=== PATIENT | female | born 1975 | race Caucasian/White ===

== ENCOUNTER 2018-07-01 00:19 | Outpatient (CLI) | payer OTHER, SELFPAY ==
--- NOTE | 2018-07-01 08:00 | DI.MAMMO_ITS ---
SYMPTOM/DIAGNOSIS: SCREENING, Z12.31 MAMMOGRAMS: Mammograms were interpreted according to the usual protocol including computer analysis with CAD system, tomosynthesis and C view imaging. Comparison with prior examinations. Breast density D. No masses or microcalcifications are seen. There is nothing to suggest malignancy. IMPRESSION: Negative mammogram. Routine screening is recommended. Category I. MQSA ASSESSMENT OF FINDINGS: Negative. Category 1. Patient will receive a letter notifying them of these results. BI-RADS category D. The breasts are extremely dense, which lowers the sensitivity of mammography.
== END 2018-07-01 00:39 ==
PROVIDERS: PCP Family Medicine; Visit Provider Nurse Practitioner Family
DX: Z12.31 Encounter for screening mammogram for malignant neoplasm of breast (principal)
CPT/HCPCS: 77063; 77067

== ENCOUNTER 2020-01-13 11:11 | Outpatient (REF) | payer OTHER, SELFPAY ==
[2020-01-13 18:28] LABS: HCT 40.6 % (36.0-46.0); HGB 13.7 g/dL (12.0-15.5); Mean Corp. HGB Concentration 33.7 g/dL (32.0-36.0); Mean Corpuscular Hemoglobin 30.2 pg (27.0-33.0); Mean Corpuscular Volume 89.6 fL (80-95); Mean Platelet Volume 10.3 fL (8.0-11.0); Platelet Count 251 x1000/uL (130-400); RBC 4.53 m/cumm (4.00-5.20); RBC Distribution Width 13.2 % (11.7-14.6); White Blood Cell Count 4.78 k/cumm (4.4-10.8)
[2020-01-13 18:42] LABS: ALT 18 U/L (14-59); AST 13 U/L (15-37); Alkaline Phosphatase 47 U/L (46-116); Anion Gap 9.4 mmol/L (3-11); BUN 13 mg/dL (7-18); Bilirubin, Total 1.1 mg/dL (0.2-1.0); C-Reactive Protein 0.07 mg/dL (0.0-0.3); CO2 24.6 mmol/L (21.0-32.0); CREATININE 0.65 mg/dL (0.55-1.02); Calcium 8.8 mg/dL (8.5-10.1); Chloride 104 mmol/L (98-107); Creatine Kinase 25 U/L (26-192); Glucose 81 mg/dL (74-106); Potassium 3.8 mmol/L (3.5-5.1); Sodium 138 mmol/L (136-145); TSH (W/Ref FT4) 1.43 uIU/mL (0.36-3.74)
[2020-01-13 19:10] LABS: ESR 7 mm/hr (0-20)
[2020-01-16 11:09] LABS: Lyme Ab w Rflx to Lyme Confirm Negative (Negative)
== END 2020-01-13 11:31 ==
LOC: NCHCN 11:11
PROVIDERS: PCP Family Medicine; Visit Provider Nurse Practitioner Family
DX: M79.10 Myalgia, unspecified site (principal)
CPT/HCPCS: 80053; 82550; 85027; 85652; 84443; 86140; 86618

== ENCOUNTER 2021-03-16 15:33 | Emergency (ER) | payer SELFPAY ==
[2021-03-16 15:40] VITALS: BP 133/69; PULSE 74; RESP 20; TEMP 36.7; O2SAT 98
--- NOTE | 2021-03-16 15:45 | DI.CT_ITS ---
Exam(s) CT RENAL COLIC WO EXAM: CT RENAL COLIC WO CLINICAL HISTORY: L flank pain. TECHNIQUE: Imaging Protocol: Axial computed tomography images with coronal and sagittal reformatted images were created and reviewed. COMPARISON: No exams were available for comparison FINDINGS: ABDOMEN: Lung Bases: Normal where visualized. There does appear to be a partially visualized small pericardial effusion. Liver: Normal density. No measurable mass. Gallbladder and biliary tract: No radiodense calculus or biliary ductal dilation. Pancreas: Normal density, no abnormal calcifications or inflammatory process. Spleen: Normal. Kidneys: Normal size, contour and axis.There is left nephrolithiasis. There is a 3 mm stone in the d istal left ureter just proximal to the UVJ which causes mild to moderate hydronephrosis. No masses s een. Adrenal glands: No mass is seen. Lymph nodes: Within normal limits. Abdominal Aorta: Abdominal portion non-dilated. PELVIS: Bladder:Symmetric distention, no gross wall thickening. Bowel: No obstruction or bowel wall thickening. Normal appendix is visualized. Peritoneal cavity: No ascites, collection or mesenteric inflammatory response. No free air. Reproductive organs: Within normal limits. Bones: Within normal limits. Soft Tissues: Within normal limits. IMPRESSION: 1. 3 mm stone in the distal left ureter just proximal to the UVJ which causes mild to moderate hydron ephrosis. 2. Left nephrolithiasis. 3. Small partially visualized pericardial effusion. RADIATION DOSE DELIVERED: 704.8mGy.cm Total DLP DATA REPOSITORY: All CT scans at this facility are submitted to the National Radiology Data Registry (NRDR) Dose Index Registry (DIR) with the [employer] (ACR). RADIATION OPTIMIZATION: All CT scans at this facility use at least one of these dose optimization te chniques: automated exposure control; mA and/or kV adjustment per patient size (includes targeted exa ms where dose is matched to clinical indication); or iterative reconstruction.
--- NOTE | 2021-03-16 15:47 | ED.GENADUL_ITS ---
Discharge Plan Disposition Patient Disposition: HOME Condition: Improving Discharge Details Clinical Impression: Ureteral calculus, left Primary Care Provider: Antonella Reynolds ED Provider: Leighton Salinas Home Meds and New Rx's Prescriptions: No Action No Known Home Meds RF: 0 Discharge Instructions Instructions: Kidney Stones (ED), How to Strain Your Urine (ED) Additional Instructions: Home to rest this evening. May use ibuprofen as needed for pain, with the provided hydrocodone if needed for severe or breakthrough pain. May use Zofran/ondansetron as needed for nausea. Please strain your urine in an attempt to catch any kidney stone you may produce. This can be brought to the urology clinic at the time of your follow- up. We will have care management arrange a follow-up in urology for you. Return to the ER if you develop a fever, recurrent severe pain, or any other acute concerns. As you discussed your potassium level was slightly low, it was supplemented in the ER, which you may increase potassium-containing foods such as bananas, strawberries, tree nuts, leafy greens in your diet. Medical Decision Making 45-year-old female presents with her . She describes the abrupt onset of left-sided flank pain and abdomen pain beginning approximately 25 minutes prior. She arrives to the ER afebrile, normotensive with a pulse of 74. She has mild tenderness palpation of the left mid abdomen. Differential diagnosis includes renal colic, pyelonephritis, small bowel obstruction. Patient IV access established, screening labs obtained, she is given parenteral fluids, antiemetic, and analgesic. Referred for laboratory testing and CT imaging. Laboratories reveal hematuria, chemistries that note potassium of 3.1, unremarkable CBC. Potassium supplemented in the emergency department. CT reveals mild to moderate left hydroureteronephrosis and a 3 to 4 mm distal ureteral stone. Patient's pain improved. Will have her follow-up with urology. Will offer her antiemetic and analgesia for home. HPI General Mode of arrival: ambulatory . Date/Time Provider Initiated Documentation: 03/16/21 15:34 . Limitations to Documentation: no limitations . Information obtained by: patient . History of Present Illness 45 year old F presents to the emergency department with the chief complaint of Abrupt onset severe left flank and abdomen pain, described as severe, Quality is described as dull and constant, and is localized to the abdomen and left. Patient reports radiation to back. Patient started experiencing this minute(s) and it has been constant. No relieving factors improve symptom(s), No exacerbating factors reported . Patient notes nausea/vomiting; denies fever/chills. Patient did receive the following treatments prior to arrival, none Related Data Home Medications Medication Instructions Recorded Confirmed Unknown [No Known Home Meds] 06/17/18 03/16/21 Allergies Allergy/AdvReac Type Severity Reaction Status Date / Time No Known Allergies Allergy Verified 03/16/21 15:44 General Stated Complaint: FlankPain ELIZABETH: 2 Review of Systems Narrative: No fever. No fall or injury. Otherwise healthy lady. 6 systems reviewed and otherwise negative. [facility] Medical History Family history of breast cancer Family History Mother Breast cancer Grandmother Breast cancer paternal Maternal Uncle Colon cancer maternal Social History Smoking/Tobacco Use Status: Never Smoking risk assessment performed?: Yes Drug use: Never Female Reproductive History Menstrual control method: permanent sterilization (Vasectomy for BC) History History 5 Para 4 Hx # Term Pregnancies Multiple births Hx # Pregnancies Ectopic pregnancies AB induced Hx Number of Living Children AB spontaneous Past Pregnancies Del. Date GA/Weeks # Outcome Route Wgt Sex Labor Lgth Anesthes ia Location Prov Complic Unknown Delivery Date: 4 vaginal deliveries NGHIA,LIZZ Exam Narrative Exam Narrative: GEN: awake, alert, oriented 3. In pain and distress HEAD: Normocephalic, atraumatic ENT: Mucous membranes moist, oropharynx unremarkable, External ear exam unremarkable EYES: PERRL, EOMI NECK: Full ROM, no ELEANOR, no menigismus CHEST/RESP: Nontender, clear to auscultation bilateral, no wheeze/rhonchi/rales CARDIOVASCULAR: RRR, no murmur, rub ellen. 2+ Rad pulse bilateral ABDOMEN: Soft, tender to palpation left mid abdomen, no rebound, no mass. +Bowel sounds EXT: Full ROM, no edema, no rash Neuro: Grossly normal neurologic exam, conversant, interactive. Psych: Speech fluent, thoughts congruent, affect anxious Course Vital Signs Vital signs: Vital Signs Temperature 36.7 C 07/24/21 15:40 Pulse 74 03/16/21 15:40 Respiratory Rate 20 03/16/21 15:40 Blood Pressure 133/69 03/16/21 15:40 Pulse Oximetry 98 03/16/21 15:40 Temperature 36.7 C 03/16/21 15:40 Temperature Source Temporal Artery Scan 03/16/21 15:40 Pulse 74 03/16/21 15:40 Respiratory Rate 20 03/16/21 15:40 Respiratory Effort Non-Labored 03/16/21 15:43 Blood Pressure 133/69 03/16/21 15:40 Blood Pressure Position Supine 03/16/21 15:40 Pulse Oximetry 98 03/16/21 15:40 Oxygen Delivery Method Room Air 03/16/21 15:40 Oxygen Flow Rate 0 03/16/21 15:40 Pain Level 10 03/16/21 15:40
[2021-03-16] MEDS: HYDROmorphone 2 MG/ML VIAL 1 MG IVP (15:52)
[2021-03-16] MEDS: Normal Saline 1,000 ML 1000 ML IV (15:52)
[2021-03-16] MEDS: Ondansetron 4 MG/2 ML VIAL IVP (15:53)
[2021-03-16 16:05] LABS: Abs Immature Grans 0.02 10^3/uL (0.0-0.06); Absolute Basophil Count 0.04 10^3/uL (0.0-0.2); Absolute Eosinophil Count 0.08 10^3/uL (0.0-0.7); Absolute Lymphocyte Count 3.98 10^3/uL (1.2-3.4); Absolute Monocyte Count 0.75 10^3/uL (0.1-0.8); Absolute Neutrophil Count 4.99 10^3/uL (1.2-6.7); Basophils % 0.4; Eosinophils % 0.8; HCT 39.9 % (36.0-46.0); HGB 13.5 g/dL (11.2-15.7); Immature Grans % 0.2; Lymphocytes % 40.4; MCH 30.1 pg (27.0-33.0); MCHC 33.8 % (32.0-36.0); MCV 89.1 fL (80-95); MPV 9.4 fL (8.0-11.0); Monocytes % 7.6; Neutrophils % 50.6; Nucleated RBC 0 %; Platelet Count 310 10^3/uL (130-400); RBC 4.48 10^6/uL (3.93-5.22); RDW 12.3 % (11.7-14.6); RDW-SD 40.2 fL; WBC 9.86 10^3/uL (4.4-10.8)
[2021-03-16] MEDS: HYDROmorphone 2 MG/ML VIAL 0.5 MG IVP (16:18)
[2021-03-16 16:19] VITALS: BP 112/73; O2SAT 92
[2021-03-16 16:26] LABS: ALT 19 U/L (14-59); AST 14 U/L (15-37); Alkaline Phosphatase 50 U/L (46-116); BUN 14 mg/dL (7-18); Bilirubin, Total 0.8 mg/dL (0.2-1.0); CREATININE 0.8 mg/dL (0.55-1.02); Calcium 9.4 mg/dL (8.5-10.1); Chloride 107 mmol/L (98-107); Glucose 100 mg/dL (74-106); Potassium 3.1 mmol/L (3.5-5.1); Sodium 145 mmol/L (136-145); Total Protein 7.2 g/dL (6.4-8.2)
[2021-03-16 16:48] LABS: Bilirubin Negative (Negative); Blood Large (Negative); Clarity Clear (Clear); Glucose Negative (Negative); Ketones 40 mg/dL (Negative); Leukocyte Esterase Negative (Negative); Nitrite Negative (Negative); Specific Gravity >= 1.030 (1.005-1.025); Urobilinogen 0.2 EU/dL (Up TO 0.2); pH 6.5 (5-8)
[2021-03-16 17:02] LABS: Bacteria Moderate HPF (Negative); C & S Indicated? No/Sq. Contamination; Casts Negative LPF (Negative); Crystals Negative HPF (Negative); Epithelial Cells Moderate HPF (Negative); Mucus Negative (Negative); RBC >50 HPF (0-2)
[2021-03-16] MEDS: POTASSIUM CHLORIDE 10 MEQ/100 ML BAG 100 MEQ IVPB (17:10)
--- NOTE | 2021-03-16 17:11 | DI.VRAD_ITS ---
PROCEDURE INFORMATION: Exam: CT Abdomen And Pelvis Without Contrast Exam date and time: 03/16/2021 3:47 PM Age: 45 years old Clinical indication: Other: Left flank pain TECHNIQUE: Imaging protocol: Computed tomography of the abdomen and pelvis without contrast. COMPARISON: No relevant prior studies available. FINDINGS: Lungs: The visualized portions of the lung bases are normal. Heart: Partially visualized small pericardial effusion. Liver: Normal. No mass. Gallbladder and bile ducts: Normal. No calcified stones. No ductal dilation. Pancreas: Normal. No ductal dilation. Spleen: Normal. No splenomegaly. Adrenal glands: Normal. No mass. Kidneys and ureters: Mild to moderate left hydroureteronephrosis secondary to a 3-4 mm stone within the distal ureter, just proximal to the UVJ. Stomach and bowel: Unremarkable. No obstruction. No mucosal thickening. Appendix: No evidence of appendicitis. Intraperitoneal space: Unremarkable. No free air. No significant fluid collection. Vasculature: Unremarkable. No abdominal aortic aneurysm. Lymph nodes: Unremarkable. No enlarged lymph nodes. Urinary bladder: Unremarkable as visualized. Reproductive: Unremarkable as visualized. Bones/joints: Unremarkable. No acute fracture. Soft tissues: Unremarkable. IMPRESSION: 1. Mild to moderate left hydroureteronephrosis secondary to a 3-4 mm stone within the distal ureter, just proximal to the UVJ. 2. Partially visualized small pericardial effusion. Dictated and Authenticated by: Viral Malloy MD. Ordering:CHRISTAL Manzanares MD
[2021-03-16] MEDS: Potassium Chloride Liquid 20 MEQ PKT 10 MEQ PO (17:15)
[2021-03-16] MEDS: Ketorolac 15 MG/ML VIAL IVP (17:16)
--- NOTE | 2021-03-16 17:16 | NUR.NOTE ---
Nursing Note: Referral faxed to [facility] U[facility] for left kidney stone. Follow up to be determined by Urology. Yaneth Dawson
[2021-03-16 17:17] VITALS: BP 108/69; PULSE 74; RESP 16; TEMP 36.6; O2SAT 97
== END 2021-03-16 18:20 | disposition home or self-care (01) ==
PROVIDERS: Emergency Provider Emergency Medicine; PCP Family Medicine
DX: N13.2 Hydronephrosis with renal and ureteral calculous obstruction (principal); E87.6 Hypokalemia; R11.2 Nausea with vomiting, unspecified
CPT/HCPCS: 36415; 80053; 81025; 96361; 96365; 96375; 99284; 74176; 81003; 81015; 85025; J1885; J2405; J3480

== ENCOUNTER → 2022-06-09 15:55 | Outpatient (CLI) | payer BC, SELFPAY ==
--- NOTE | 2022-06-09 | DI.RAD_ITS ---
Exam(s) XR SKULL COMPLETE EXAM: XR SKULL COMPLETE CLINICAL HISTORY: SKULL DEFORMITY-RIGHT BASE, M95.2. TECHNIQUE: 2D digital imaging was performed. Six images were obtained. COMPARISON: No exams were available for comparison FINDINGS: No fracture or other significant abnormalities are seen. There is a solid dense lesion measuring 4.1 craniocaudad by 1.4 AP by 4.4 transverse. It is located adjacent to arise or arising from the occipit al bone on the right. It appears solid. No erosion or periosteal reaction is seen. The adjacent soft tissues are unremarkable. IMPRESSION: Bony lesion adjacent to or arising from the occipital bone on the right. 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 A CT scan may be considered for further evaluation. DATA REPOSITORY: RADIATION DOSE DELIVERED:
== END ==
PROVIDERS: PCP Family Medicine; Visit Provider Nurse Practitioner Family
DX: M95.2 Other acquired deformity of head (principal)
CPT/HCPCS: 80053; 85652; 70260; 84443; 85025

== ENCOUNTER 2022-06-09 20:02 | Outpatient (REF) | payer BC, SELFPAY ==
[2022-06-09 20:43] LABS: ESR 10 mm/hr (0-20)
[2022-06-09 20:44] LABS: Abs Immature Grans 0.02 10^3/uL (0.0-0.06); Absolute Basophil Count 0.03 10^3/uL (0.0-0.2); Absolute Eosinophil Count 0.07 10^3/uL (0.0-0.7); Absolute Monocyte Count 0.52 10^3/uL (0.1-0.8); Absolute Neutrophil Count 4.32 10^3/uL (1.2-6.7); Basophils % 0.4; HCT 41.6 % (36.0-46.0); HGB 14.2 g/dL (11.2-15.7); Immature Grans % 0.3; Lymphocytes % 28.7; MCH 30.3 pg (27.0-33.0); MCHC 34.1 % (32.0-36.0); MCV 89 fL (80-95); MPV 9.9 fL (8.0-11.0); Monocytes % 7.5; Neutrophils % 62.1; Platelet Count 305 10^3/uL (130-400); RBC 4.68 10^6/uL (3.93-5.22); RDW 12.4 % (11.7-14.6); RDW-SD 40.5 fL; WBC 6.96 10^3/uL (4.4-10.8)
[2022-06-09 20:50] LABS: ALT 21 U/L (14-59); AST 19 U/L (15-37); Albumin 4.2 g/dL (3.4-5.0); Alkaline Phosphatase 58 U/L (46-116); Anion Gap 10.6 mmol/L (3-11); BUN 12 mg/dL (7-18); Bilirubin, Total 0.8 mg/dL (0.2-1.0); CO2 23.4 mmol/L (21.0-32.0); CREATININE 0.6 mg/dL (0.55-1.02); Calcium 9.5 mg/dL (8.5-10.1); Chloride 103 mmol/L (98-107); Estimated GFR 112.73 (mL/min/1.73m2); Glucose 74 mg/dL (74-106); Potassium 3.6 mmol/L (3.5-5.1); Sodium 137 mmol/L (136-145); TSH (W/Ref FT4) 1.85 uIU/mL (0.36-3.74); Total Protein 7.7 g/dL (6.4-8.2)
[2022-06-11 14:10] LABS: ANA Interpretation Negative (Negative)
== END 2022-06-09 20:03 | disposition home or self-care (01) ==
LOC: NCHCN 20:02
PROVIDERS: PCP Family Medicine; Visit Provider Nurse Practitioner Family
DX: R53.83 Other fatigue (principal); R21 Rash and other nonspecific skin eruption; M25.59 Pain in other specified joint; M79.18 Myalgia, other site; I73.00 Raynaud's syndrome without gangrene
CPT/HCPCS: 80053; 85652; 84443; 85025; 86038

== ENCOUNTER → 2022-06-25 02:14 | Outpatient (CLI) | payer BC, SELFPAY ==
--- NOTE | 2022-06-25 08:07 | DI.MAMMO_ITS ---
Exam(s) MAMMO SCREENING EXAM: MAMMO SCREENING CLINICAL HISTORY: SCREENING FOR BREAST CANCER Z12.39 TECHNIQUE: Mammograms were interpreted according to the usual protocol including computer analysis w [employer] CAD system, tomosynthesis and C-view imaging. COMPARISON: 2017 and 2018 FINDINGS: The breasts are composed of heterogeneously dense fibroglandular densities, Breast Density category C . There is a new area of nodularity seen superiorly in the right breast. Spot compression views and ul trasound are recommended for further evaluation. No additional changes are seen. No suspicious calc ifications in either breast. No skin thickening or abnormal axillary lymph nodes are seen. IMPRESSION: BI-RADS Category 0 - Assessment Incomplete: Need additional imaging evaluation Left breast: Yearly screening mammography is recommended. Breast Density Category C, heterogeneously Dense. The mammogram demonstrates the patient's breast tissue is dense. Dense breast tissue is very common a nd is not abnormal but dense breast tissue can make it harder to find cancer on a mammogram. Also, de nse breast tissue may increase breast cancer risk. This information about the result of the mammogram report was provided to the patient to raise their awareness. Use this report when you speak with the patient about their risks for breast cancer, which includes their family history. At that time, you may recommend additional screening tests (Ultrasound or MRI) as they might be useful based on their r isk. A negative radiographic report should not delay biopsy if a dominant or clinically suspicious mass is present. Up to ten percent of cancers are not identified on mammography. A negative report may reinforce clinical impression. Adenosis and dense breasts may obscure an underlying neoplasm. False positive reports average 6 to 10%.
== END ==
PROVIDERS: PCP Family Medicine; Visit Provider Nurse Practitioner Family
DX: Z12.31 Encounter for screening mammogram for malignant neoplasm of breast (principal); R92.8 Other abnormal and inconclusive findings on diagnostic imaging of breast
CPT/HCPCS: 77063; 77067

== ENCOUNTER 2022-06-25 09:11 | Outpatient (REF) | payer BC, SELFPAY ==
--- NOTE | 2022-06-25 08:55 | PAPFT_PTH ---
PATIENT: Tammy Coronado LOC: [facility] U#:[id number] AGE/SX: 46/F ROOM: RE06/25/[address]: Rebecca Godinez MD : 1975 BED: DIS: 06/25/2022 SPEC #: [id number] RECD: 06/25/22 12:47 STATUS: H[place]IS [place] #: [id number] JANNETTE: 06/25/22 08:[address]: Rebecca Godinez DEPT: [facility] Cytology RECD BY: Sravani Morrissey ENTERED: 06/25/22 12:47 SP TYPE: PAPFT OTHR DR: Antonella Reynolds Tissues: 1 - CX/ENDOCX FOR PAP SMEARS Procedures: PAP THIN PREP/UVM Screening HPV DNA PROBE Comments: [id number]
== END 2022-06-25 09:12 | disposition home or self-care (01) ==
LOC: LBN 09:11
PROVIDERS: PCP Family Medicine; Visit Provider Obstetrics & Gynecology
DX: Z12.4 Encounter for screening for malignant neoplasm of cervix (principal); Z11.51 Encounter for screening for human papillomavirus (HPV)
CPT/HCPCS: 88142; 87624

== ENCOUNTER → 2022-07-02 02:10 | Outpatient (CLI) | payer BC, SELFPAY ==
--- NOTE | 2022-07-02 13:30 | DI.MAMMO_ITS ---
Exam(s) MG MAMMO SCREEN CALL BACK UNI US BREAST RT LIMITED EXAM: MG MAMMO SCREEN CALL BACK UNI and U/S breast RT limited CLINICAL HISTORY: F/U ABNL MAMMO, NEW NODULARITY RT BREAST. TECHNIQUE: Craniocaudal and mediolateral oblique Full Field Digital Mammography views of the right b reast with Computer Aided Diagnosis followed by Tomosynthesis and right breast ultrasound. COMPARISON: Comparison is made with prior examinations. FINDINGS: Mammography/Tomosynthesis: Masses/Architectural Distortion: None seen. Microcalcifictions: No suspicious pleomorphic-type are seen. Skin Thickening/Nipple Retraction: None. Limited right breast US: Echotexture: Normal appearance of the glandular tissue. Shadowing: No suspicious foci. Cyst: There is a 0.5 x 0.5 x 0.5 cm anechoic cyst at the 12 o'clock position 1 cm from the nipple con sistent with a cyst. There is a 0.7 x 0.4 x 0.4 cm anechoic cyst at the 1 o'clock position 4 cm from the nipple. Solid lesions: At the 10 o'clock position 5 cm from the nipple, there is an ovoid hypoechoic lesion w ith hyperechoic hilum most consistent sonographically with the lymph node. Ductal dilation: None. IMPRESSION: 1. No evidence of malignancy is noted. 2. Unless there is more urgent need, follow-up screening mammography is recommended, as per [employer] guidelines. 3. The findings were discussed with the patient on the date of the examination. BI-RADS Category 2 - Benign Findings Breast Density - Category C - Heterogeneously dense Breast density Category C or D implies that the patient has dense breast tissue. Dense breast tissue can make it harder to find cancer on a mammogram. Dense breast tissue is also associated with an incr eased risk of breast cancer. This information about the result of the mammogram report was provided to the patient to raise their awareness. Use this report when you speak with the patient about their risks for breast cancer, which includes their family history. At that time, you may recommend additional screening tests (Ultrasoun d or MRI) as these tests may add significant information. A negative radiographic report should not delay biopsy if a dominant or clinically suspicious mass is present. Up to ten percent of cancers are not identified on mammography. A negative report may reinforce clinical impression. Adenosis and dense breasts may obscure an underlying neoplasm. False positive reports average 6 to 10%. Patient will receive a letter notifying them of these results.
== END ==
PROVIDERS: PCP Family Medicine; Visit Provider Nurse Practitioner Family
DX: Z12.31 Encounter for screening mammogram for malignant neoplasm of breast (principal); N63.10 Unspecified lump in the right breast, unspecified quadrant
CPT/HCPCS: 76642; 77063; 77067

== ENCOUNTER 2023-05-04 11:54 | Day surgery (SDC) | payer BC, SELFPAY ==
--- NOTE | 2023-05-03 20:55 | W.PM.DSUDISC ---
Date of service: 05/04/23 Time of Service: 13:46 Discharge Plan Disposition Patient Disposition: Home Condition: Good Discharge Details Reason For Visit: Screening colonosopy Attending Provider: Baltazar Shaikh Primary Care Provider: Pennie Purvis Home Meds and New Rx's Prescriptions: Discontinued polyethylene glycol 3350 17 gram/dose powder 238 g PO ONCE Qty: 238 0RF Rx Instructions: take per colonoscopy instructions bisacodyl [Dulcolax (bisacodyl)] 5 mg tablet,delayed release (DR/EC) 5 mg PO ONCE Qty: 4 0RF Rx Instructions: take per colonoscopy instructions Discharge Instructions Instructions: Colorectal Polyps (GEN) Additional Instructions: We, we were able to complete your colonoscopy today without any difficulty. I did find 2 polyps. 1 of these was over 1 cm, which is considered large by polyp standards. However, I was able to remove both of these completely without any difficulty. The neck step is waiting for the pathology report. To the naked eye, I did not see any worrisome features that would cause alarm. Ultimately, however, the pathology report is the most important part dictating when you will need your next colonoscopy. As soon as I get that information I will be in touch. In the meantime, if you have any questions at all, please do not hesitate to call. 1. If tolerated, consume a soft, low fiber diet for 1-2 days. 2[address] Do not drive, drink alcohol, operate machinery, make critical decisions, or do activities that require coordination or balance for 24 hours. 3. Because air was put into your colon during the procedure, expelling air from your rectum (passing gas or farting) is normal. 4. You may not have a bowel movement for 1-3 days because of the colonoscopy prep. This is normal. 5. Go directly to the emergency room if you notice any of the following: Develop chills (warm to touch), or if you have a thermometer and your temperature is above 101 Difficulty breathing or difficultly swallowing Persistent vomiting Severe abdominal pain, other than gas cramps Severe chest pain Black, tarry stools Any bleeding ? exceeding one tablespoon 6. Call your physician if the site where your intravenous was started becomes red, swollen, painful, and warm to touch. 7. Your physician has reviewed your pre-procedure medications. Please continue to take those medications as previously ordered. You will be given specific information/education regarding any changes to your medications before leaving. Activity:: Activity as Tolerated Diet:: As Tolerated Discharge Orders Discharge Orders: Discharge Order (Routine); Ordered 05/03/23 Ordered By: Baltazar Shaikh DS: Diagnosis Discharge Diagnosis (1) Screening for colon cancer: Status: Acute Asessment and Plan: Follow-up on polypectomy results
--- NOTE | 2023-05-03 20:57 | W.COLOREPORT ---
Date of service: 05/04/23 Time of Service: 13:47 Colonoscopy Report Date of procedure: 05/04/23 Pre-op diagnosis general: screening colonoscopy Post-op diagnosis procedure note: other (Colon polyps) Procedure: Colonoscopy Surgeon: Baltazar Shaikh Anesthesia Type: General:No Airway Estimated blood loss (mL): 10 Pathology: other (0.5 cm polyp at 90 cm from the anal verge, 1.25 cm polyp at 18 cm) Complications: None Disposition: same day Indications: Tammy is a 47 year old woman who needs a screening colonoscopy Prep: Miralax/Dulcolax Procedure Start Time: 13:09 Procedure End Time: 13:34 Retraction Time: 15 Findings: 0.5 cm polyp at 90 cm; 1.25 cm polyp at 18 cm Procedure Description: After the induction of monitored anesthetic care, and with the patient in left lateral decubitus position, I began by performing an external anorectal exam.? Perineum and skin were normal, as was the anal verge.? There was no evidence of external hemorrhoids.? Next, I performed a digital rectal exam.? I did not appreciate any abnormal findings.? Next, I advanced a colonoscope into the rectal vault.? I performed retroflexion.? This was normal.? Using insufflation, I then advanced the colonoscope beyond the rectal folds and into the sigmoid colon before advancing towards the cecum.? The quality of the prep was excellent.? The scope was noted to be in the cecum by identification of the ileocecal valve and appendiceal orifice.? I then began withdrawing the colonoscope using repeated irrigation as necessary for full evaluation of the colonic mucosa. Around 90 cm from the anal verge I identified a 0.5 cm polyp. ?It appeared sessile in character. ?I was able to remove this with a cold forceps. ?I examined the site, and there was minimal bleeding. ?Once this was completed, I continued to withdraw the scope and examine the remainder of the colonic mucosa.? Around 18 cm from the anal verge was a 1.25 cm polyp. It was multilobed. There is no ulceration. It arose from a single small pedicle. I removed this with cold snare polypectomy. There was a small amount of bleeding from the resection site that was easily controlled with cautery. Because of the size of this polyp, I did feel that marking it for future reference would be useful. Therefore, I did place a submucosal tattoo. Once the scope was withdrawn to the level of the rectum, great care was taken to examine portions of the rectal folds.? Finally, the scope was withdrawn and the patient was brought to the same-day surgery recovery unit as the anesthetic wore off. ?The findings and instructions were shared with the patient prior to discharge.
--- NOTE | 2023-05-04 06:19 | W.ANESPRE ---
General Info Date of Service Date Performed: 05/04/23 Height: 5 ft 4 in Weight: 63.503 kg Body Mass Index (BMI): 24.0 Surgical Procedure: Operation Date: 05/04/23 13:35 Proposed Procedure Side Surgeon p Colonoscopy Baltazar Shaikh MD Meds Allergies and Home Medications Allergies Allergy/AdvReac Type Severity Reaction Status Date / Time No Known Allergies Allergy Verified 05/04/23 12:07 Current Visit Medications: Current Medications Generic Name Dose Route Start Last Admin Trade Name Freq PRN Reason Stop Dose Admin Hyoscyamine Sulfate 0.125 mg 05/03/23 20:58 Hyoscyamine 0.125 Mg Sl/Oral/Chew SL 06/02/23 20:57 DIRECTED PRN Ringer's Solution 1,000 mls @ 80 mls/hr 05/04/23 06:00 IV 05/31/23 23:59 INFUSION [facility] IV Miscellaneous Supplies 1 each 05/04/23 06:00 Iv Access IV 05/31/23 23:59 DIRECTED VERITO Ondansetron HCl 4 mg 05/03/23 20:58 Ondansetron 4 Mg/2 Ml Vial IVP 06/02/23 20:57 Q4H PRN PRN Nausea / Vomiting Sodium Chloride 0 ml 05/04/23 06:00 Normal Saline Flush 10 Ml Syr IV 05/31/23 23:59 PRN PRN Sodium Chloride 0 ml 05/04/23 06:00 Normal Saline 10 Ml Vial IJ 05/31/23 23:59 DIRECTED PRN Sterile Water 0 ml 05/04/23 06:00 Water,Injection,Sterile 10 Ml Vial IJ 05/31/23 23:59 DIRECTED PRN PFSH Active Problems Active Problems: Problem Status Onset Code Muscular aches M79.10 Fatigue R53.83 Screening for colon cancer Z12.11 Hematochezia K92.1 Hx of constipation Z87.19 Hx of hemorrhoids Z87.19 Ureteral calculus, left N20.1 Family history of breast cancer Z80.3 Medical History Medical History Dermatitis Joint pain Lip lesion Nasal lesion Raynauds disease Skull deformity Surgical History Surgical History H/O dilation and curettage Tobacco Smoking/Tobacco Use Status: Never Alcohol Alcohol Intake: current Substance Use Substance use: Never Substance use type: does not use Prental History History 5 Para 4 Hx # Term Pregnancies Multiple births Hx # Pregnancies Ectopic pregnancies AB induced Hx Number of Living Children AB spontaneous Past Pregnancies Del. Date GA/Weeks # Preg Succ Route Wgt Sex Labor Lgth Anesthesia Location [facility] 04/06/97 No Yes vaginal 3628.739 g Male [facility] 10/03/99 No Yes vaginal 4082.331 g Male [facility] 05/16/06 No Yes vaginal 4082.331 g Male [facility] 12/17/12 No Yes vaginal 3175.147 g Female [facility] Vital Signs and Lab Results Vital Signs Most Recent Vital Signs in EMR: Temp Pulse Resp BP Pulse Ox 36.6 C 98 H 18 107/75 100 05/04/23 12:00 05/04/23 12:00 05/04/23 12:00 05/04/23 12:00 05/04/23 12:00 Lab Results Blood Type / Crossmatch: No Data to Display Complete Blood Count: No Data to Display Complete Metabolic Panel: No Data to Display Liver Function Panel: No Data to Display Coagulation Panel: No Data to Display Cardiac Panel: No Data to Display Arterial Blood Gas: No Data to Display Venous Blood Gas: No Data to Display Pancreas Panel: No Data to Display Thyroid Panel: No Data to Display Infectious Disease: No Data to Display Blood Cultures: No Data to Display Toxicology Panel: No Data to Display Panel: No Data to Display Anesthesia Assessment and Plan Anesthesia History Personal History: No History of Anesthesia Complications Family History: No Family History of Anesthesia Complications Exercise Tolerance Exercise Tolerance: Metabolic Equivalents>4 Cardiac & Pulmonary Exam Cardiac Exam: Normal S1/S2 Heart Sounds Pulmonary Exam: Clear Bilateral Breath Sounds Implantable Cardiac Device Does patient have a Pacemaker or an ICD?: No Airway Exam Known Difficult Airway: No Mallampati Class: 3 Mouth Opening: Narrow (< 3cm) Thyromental Distance: Less than 3 cm Neck Range of Motion: Full ROM Neck Circumference: Normal Teeth Condition: Normal Dentition ASA Classification ASA Score: ASA 2 Emergency Case?: No NPO Status NPO Status: NPO Clears >2 hours, Solids >8 hours Status Status: Negative HCG Anesthesia Plan Resuscitation Status: Full Code Anesthesia Technique: General Anesthesia Airway Planned: Natural Airway Monitors Used: Standard Monitors Preoperative Comments:: 47 yo female for colo. Sig PMHx: Raynaud's, s/p skull osteoma removal, never smoker, occ Etoh, Previous Anes: - crani [facility], easy mask, mac 3 grade 1.
[2023-05-04 12:00] VITALS: BP 107/75; PULSE 98; RESP 18; TEMP 36.6; O2SAT 100
[2023-05-04] MEDS: Lactated Ringers 1,000 ML 80 ML IV (12:30)
[2023-05-04 12:42] VITALS: BMI 24.0
--- NOTE | 2023-05-04 13:17 | BOWEL_PTH ---
PATIENT: Tammy Coronado LOC: [facility] U#:[id number] AGE/SX: 47/F ROOM: RE05/04/[address]: Baltazar Shaikh MD : 1975 BED: DIS: 05/04/2023 SPEC #: [id number] RECD: 05/04/23 18:07 STATUS: HARRIS RE #: [id number] JANNETTE: 05/04/23 13:[address]: Baltazar Shaikh DEPT: Surgical Specimen RECD BY: Sravani Morrissey ENTERED: 05/04/23 18:08 SP TYPE: Bowel OTHR DR: JENNYFER VAUGHN Tissues: 1 - BIOPSY BOWEL 2 - BIOPSY BOWEL Procedures: GROSS AND MICRO LEVEL 4 Comments: [id number]
[2023-05-04] MEDS: Endoscopic Tattoo 5 ML SYR IJ (13:30)
[2023-05-04 13:43] VITALS: BP 95/56; PULSE 87; RESP 16; TEMP 36.4; O2SAT 99
--- NOTE | 2023-05-04 13:48 | W.ANESPOSTOP ---
Postoperative Evaluation Date, Time and Location Date Performed: 05/04/23 Time Performed: 13:48 Patient Location: Day Surgery Unit Vital Signs Most Recent Imported Vital Signs: Most Recent Vital Signs Temp Pulse Resp BP Pulse Ox 36.4 C L 87 16 95/56 L 99 05/04/23 13:43 05/04/23 13:43 05/04/23 13:43 05/04/23 13:43 05/04/23 13:43 Pain Score Most Recent Pain Score: Most Recent Pain Score Pain Level 0 05/04/23 12:00 Assessment Mental Status: Awake (Alert & Oriented to Patient Baseline) Airway and Respiratory Function: Patent airway with normal (patient baseline) respiratory exam Cardiovascular Function: Hemodynamically Stable Hydration Status: Adequately Hydrated Nausea & Vomiting: No Nausea or Vomiting Pain: Pt. Denies Any Pain Peripheral Nerve Block: Patient did not receive a nerve block
[2023-05-04 14:08] VITALS: BP 106/79; PULSE 70; RESP 16; TEMP 36.4; O2SAT 100
== END 2023-05-04 14:15 | disposition home or self-care (01) ==
PROVIDERS: PCP Nurse Practitioner Family; Visit Provider Surgery
PROC: 0DJD8ZZ Inspection of Lower Intestinal Tract, Via Natural or Artificial Opening Endoscopic (ICD-10-PCS; CPT 45378; principal; 2023-05-04 13:30)
DX: Z12.11 Encounter for screening for malignant neoplasm of colon (principal); D12.3 Benign neoplasm of transverse colon; D12.5 Benign neoplasm of sigmoid colon
CPT/HCPCS: 45385; 45381; 45380; 81025; 88305; J2001

== ENCOUNTER 2023-09-01 19:09 | Emergency (ER) | payer BC, SELFPAY ==
--- NOTE | 2023-09-01 19:12 | W.ED.GENAD ---
HPI General ELIZABETH: 2 Date/Time Provider Initiated Documentation: 09/01/23 19:12. HPI Narrative: MDM This is an overall very well-appearing normothermic and not tachycardic 48-year-old female with no indication for CT head based on Mauritian head CT criteria: Mauritian Head CT Criteria Major Criteria GCS < 15 : [No] Open or depressed skull Fx: [No] Sign of Basilar Skull Fx: [No] > 2 Episodes Vomiting: [No] Anticoagulation: [No] Age > 65: [No] Minor Criteria Retrograde Amnesia >30min: [No] Dangerous Mechanism: [No] Per Mauritian head CT rules, CT head not obtained. The patient had a GCS of 15, no open/depressed skull fracture, no signs of basilar skull fracture (hemotympanum, raccoon eyes, euceda's sign, CSF Reuben/Rhinorrhea), no vomiting, and is less than 65 years of age. No pain or proportion to suggest necrotizing soft tissue infection. No neck pain to suggest benefit from CT cervical spine based on Nexus criteria. Per Nexus criteria, cervical CT not obtained. The patient had no c-spine midline tenderness, no evidence of intoxication, was AAOx3, had no focal neurological deficits, and no painful distracting injuries. Patient and I discussed whether or not to obtain a CT. I offered to obtain a CT however patient declined. I did not feel that she required an emergent CAT scan as I feel that her symptoms are most consistent with a mild traumatic brain injury. We discussed using ondansetron as needed and taking scheduled acetaminophen and ibuprofen. Chronic conditions affecting the care of the patient: Osteoma resected last year History obtained from an outside historian: N/A External record review: [facility] [place] Medications: Acetaminophen ibuprofen ondansetron Social determinants of health affecting disposition: N/A Management discussed with: N/A Treatment/interventions considered: CT scan but deferred Response to therapies provided: N/A HPI This is a 48-year-old female with a history of skull lesion resected last year at [facility] now arrived to the emergency department via private vehicle in setting of a fall that she sustained 2 days ago while ice-skating without a helmet. She said that she did not lose consciousness. She has been ambulatory since her fall. She has not been vomiting. She says that she has been nauseous. She works as a 3rd grade reading teacher. She has had increasing discomfort associate with nausea. She has not been nauseous nor dizzy. She is not anticoagulated. She is taken no recurrent falls. Exam General: Well-appearing in no acute distress speaking in complete sentences. Head: Normocephalic, mild tenderness over left parietal scalp. No scalp lacerations nor hematomas. Eye:[Pupils equal, round reactive to light.] Extraocular eye movements intact. No conjunctival injection. No scleral icterus. Ear, nose, mouth, throat: Grossly normal inspection. Normal voice, handling secretions normally. Neck: Trachea midline. Cardiovascular: Well-perfused distal extremities. Respiratory: Nonlabored respiration. Gastrointestinal: Nondistended abdomen. Musculoskeletal: No edema. Moving all 4 extremities spontaneously. Skin: Normal for age and race, grossly normal temperature and turgor. No acute rash. Neurologic: Alert and appropriate, no apparent acute deficits. GCS 15. Psychiatric: Mood and manner are appropriate. Grooming and personal hygiene are appropriate. Related Data Home Medications Medication Instructions Recorded Confirmed mupirocin 2 % topical ointment 1 applic topical TID 07/28/23 Allergies Allergy/AdvReac Type Severity Reaction Status Date / Time No Known Allergies Allergy Verified 09/01/23 19:19 PFSH All Active Problems (Updated 09/01/23 @ 19:38 by Bogdan Hernandez MD) Mild TBI (traumatic brain injury) (Acute) Muscular aches (Acute) Fatigue (Acute) Screening for colon cancer (Acute) Hematochezia (Acute) x2, with mild-mod straining, post surgery .. possible hem, div? possible aggravated post anesthesia, dehydration, poor po intake. Hx of constipation (Acute) Hx of hemorrhoids (Acute) Ureteral calculus, left (Acute) Family history of breast cancer (Chronic) Medical History (Updated 09/01/23 @ 19:38 by Bogdan Hernandez MD) Dermatitis Joint pain Raynauds disease Lip lesion Nasal lesion Skull deformity Surgical History (Updated 05/13/23 @ 10:30 by Haley Ojeda) History of colonoscopy (~04/2023) H/O dilation and curettage Family History Mother Breast cancer Grandmother Breast cancer paternal Maternal Uncle Colon cancer maternal Social History Smoking/Tobacco Use Status: Never Smoking risk assessment performed?: Yes Alcohol Intake: current Alcohol Intake frequency: holidays/special occasions only Drug use: Never Substance use type: does not use Housing: house Current gender identity: female Do you feel safe at home: Yes Do you feel safe in your relationship?: Yes Female Reproductive History Menstrual control method: permanent sterilization History History 5 Para 4 Hx # Term Pregnancies Multiple births Hx # Pregnancies Ectopic pregnancies AB induced Hx Number of Living Children AB spontaneous Past Pregnancies Del. Date GA/Weeks # Preg Succ Route Wgt Sex Labor Lgth Anesthesia Location Prov Complic 04/06/97 No Yes vaginal 3628.739 g Male [facility] 10/03/99 No Yes vaginal 4082.331 g Male [facility] 05/16/06 No Yes vaginal 4082.331 g Male [facility] 12/17/12 No Yes vaginal 3175.147 g Female [facility] Medical Decision Making Quality:SDOH Health Related Social Needs: No Data to Display Discharge Plan Disposition Patient Disposition: Home Discharge Details Clinical Impression: Mild TBI (traumatic brain injury) Primary Care Provider: Pennie Purvis ED Provider: Bogdan Hernandez Home Meds and New Rx's Prescriptions: No Action mupirocin 2 % ointment 1 applic topical TID Discharge Instructions Instructions: Head Injury (ED) Additional Instructions: You were seen in the emergency department for your head strike. We discussed obtaining a CAT scan and decided to defer at this point in time. As we discussed if you develop vomiting that does not stop or if you develop any weakness or dizziness or take any falls please return to the emergency department. You are receiving a short course of medication to take as needed for nausea. Please do not engage in activities which exacerbate your headache. For your pain please take medications as follows: 1. Take acetaminophen (Tylenol), 1,000 mg (two 500 mg tabs) every 6 hours [2. Take ibuprofen (Advil), 400 mg every 6 hours.] Discharge Data Discharge Date/Time-TO BE ENTERED AT DEPARTURE: 09/01/23 19:54
[2023-09-01 19:15] VITALS: BP 128/62; PULSE 60; RESP 16; TEMP 37.2; O2SAT 100
[2023-09-01] MEDS: Ibuprofen 600 MG TAB PO (19:50)
[2023-09-01] MEDS: Acetaminophen 500 MG TAB 1000 MG PO (19:50)
[2023-09-01] MEDS: Ondansetron O.D.T. 4 MG TABEF PO (19:51)
[2023-09-01] MEDS: Ondansetron O.D.T. 4 MG TABEF, 3 TABS/BTL PO (19:53)
== END 2023-09-01 19:54 | disposition home or self-care (01) ==
PROVIDERS: Emergency Provider Emergency Medicine; PCP Nurse Practitioner Family
DX: Z98.890 Other specified postprocedural states; W19.XXXA Unspecified fall, initial encounter; Y93.21 Activity, ice skating; S06.9X0A Unspecified intracranial injury without loss of consciousness, initial encounter; Z86.018 Personal history of other benign neoplasm
CPT/HCPCS: 96374; 99284

== ENCOUNTER 2023-09-04 12:50 | Outpatient (CLI) | payer BC, SELFPAY ==
[2023-09-07 20:12] LABS: Almond IgE <0.10 kU/L (<0.70); Brazil Nut IgE <0.10 kU/L (<0.70); Cashew IgE <0.10 kU/L (<0.70); Coconut IgE <0.10 kU/L (<0.70); Hazelnut-Food IgE <0.10 kU/L (<0.70); Peanut IgE <0.10 kU/L (<0.70); Pecan-Food IgE <0.10 kU/L (<0.70); Pistachio, IgE <0.10 kU/L (<0.70); Walnut-Food IgE <0.10 kU/L (<0.70)
== END 2023-09-04 12:51 | disposition home or self-care (01) ==
LOC: LBO 12:50
PROVIDERS: PCP Nurse Practitioner Family; Visit Provider Physician Assistant
DX: K59.00 Constipation, unspecified (principal); R21 Rash and other nonspecific skin eruption; Z91.018 Allergy to other foods
CPT/HCPCS: 36415; 86003

== ENCOUNTER → 2023-11-06 01:39 | Outpatient (CLI) | payer BC, SELFPAY ==
--- NOTE | 2023-11-06 07:45 | DI.MAMMO_ITS ---
Exam(s) MAMMO SCREENING EXAM: MAMMO SCREENING CLINICAL HISTORY: SCREENING,Z12.31, FAMILY H/O BREAST CA TECHNIQUE: Mammograms were interpreted according to the usual protocol including computer analysis w [employer] CAD system, tomosynthesis and C-view imaging. COMPARISON: 2016 through 2021 FINDINGS: The breasts are composed of heterogeneously dense fibroglandular densities, Breast Density category C . No suspicious masses or suspicious microcalcifications are seen. No skin thickening or abnormal axillary lymph nodes are seen. There has been no significant change from prior exams. IMPRESSION: BI-RADS Category 1, Negative mammogram. Yearly screening mammography is recommended. Breast Density Category C, heterogeneously Dense. The mammogram demonstrates the patient's breast tissue is dense. Dense breast tissue is very common a nd is not abnormal but dense breast tissue can make it harder to find cancer on a mammogram. Also, de nse breast tissue may increase breast cancer risk. This information about the result of the mammogram report was provided to the patient to raise their awareness. Use this report when you speak with the patient about their risks for breast cancer, which includes their family history. At that time, you may recommend additional screening tests (Ultrasound or MRI) as they might be useful based on their r isk. A negative radiographic report should not delay biopsy if a dominant or clinically suspicious mass is present. Up to ten percent of cancers are not identified on mammography. A negative report may reinforce clinical impression. Adenosis and dense breasts may obscure an underlying neoplasm. False positive reports average 6 to 10%.
== END ==
PROVIDERS: PCP Nurse Practitioner Family; Visit Provider Obstetrics & Gynecology
DX: Z12.31 Encounter for screening mammogram for malignant neoplasm of breast (principal); Z80.3 Family history of malignant neoplasm of breast
CPT/HCPCS: 77063; 77067

== ENCOUNTER → 2024-01-13 04:12 | Outpatient (CLI) | payer BC, SELFPAY ==
--- NOTE | 2024-01-13 10:30 | DI.MRI_ITS ---
Exam(s) MR BRAIN WO EXAM: MR BRAIN WO CLINICAL HISTORY: new RDZ, hx osteoma resection,r51.9 TECHNIQUE: Multiplanar multisequence MRI of the brain was performed. COMPARISON: CT CT HEAD WO/W from 06/20/2022 MR HEAD ADULT from 08/02/[address] HEAD WO CONTRAST (GENERIC) from 09/11/2023 FINDINGS: CEREBRAL PARENCHYMA: Previously present large bony right occipital protrude brings has been resected and there is no evide nce of recurrent skull mass at this location on the present study. A 2nd skull lesions in the high right frontal bone is again noted, previously documented on outside C T scan of 09/11/2023. When compared to outside MRI scan of 08/02/2022 it appears slightly low larger and with suggestion of dehiscence of both the inner and outer table of the skull at this level. Recom mend additional multi planer contrast infused sequences through this area for better comparison to CT scan of 08/02/2022. Multiple images in sagittal and coronal planes would be required for accurate co mparison There is no abnormal intra-axial signal abnormality in the subjacent cerebellar hemispheres nor withi n the occipital lobes nor elsewhere in the brain. Benign-appearing skull lesion over the high right frontal region is also unchanged. Hello There is no significant focal signal abnormality in the cerebellar hemispheres nor within the michel, m idbrain, and thalami. There is no abnormal signal abnormality in the periventricular white matter. There is no significant focal signal abnormality evident on diffusion imaging to suggest acute ischem ic event. PITUITARY GLAND: No mass nor parasellar abnormality. No obvious abnormality in the cavernous sinuses. FLOW VOIDS: The expected flow void are noted. No evidence of obvious aneurysm nor obvious vascular ma lformation. PARANASAL SINUSES: The visualized paranasal sinuses appear unremarkable. No obvious finding ORBITS: No obvious findings. IMPRESSION: 1. No evidence of recurrence of the resected right occipital bone osteoma. 2. High right occipital bone lesion which requires study with further sequences including post-contra st sequences. Coronal plain images would be quite helpful here for accurate comparison to prior outsi de MRI of 08/02/2022. 3. No abnormal intra-axial signal in the brain DATA REPOSITORY:
== END ==
PROVIDERS: PCP Nurse Practitioner Family; Visit Provider Nurse Practitioner Adult Health
DX: R51.9 Headache, unspecified (principal); D16.4 Benign neoplasm of bones of skull and face
CPT/HCPCS: 70551

== ENCOUNTER → 2024-02-02 03:44 | Outpatient (CLI) | payer BC, SELFPAY ==
--- NOTE | 2024-02-02 06:15 | DI.MRI_ITS ---
Exam(s) MR VENOUS BRAIN WO/W EXAM: MR VENOUS BRAIN WO/W CLINICAL HISTORY: Vascularly intact around area of osteoma?,new onset headache,r51.9,d16.4. TECHNIQUE: Multiplanar multisequence MRV of the brain was performed. IV Contrast: 13 mL of Magnevist contrast administered. COMPARISON: CT CT HEAD WO/W from 06/20/[address] HEAD WO CONTRAST (GENERIC) from 09/11/2023 MR MR BRAIN WO from 01/13/2024 FINDINGS: Superior sagittal sinus: Patent.Straight sinus: Patent.Sigmoid sinus: Patent.Jugular veins: Patent. The left transverse sinus is visualized. The right transverse sinus is absent. Carotid Arteries: No aneurysm, occlusion or significant stenosis. Anterior Cerebral Arteries: Right: No aneurysm, occlusion or significant stenosis. Left: No aneurysm, occlusion or significant stenosis. Middle Cerebral Arteries: Right: No aneurysm, occlusion or significant stenosis. Left: No aneurysm, occlusion or significant stenosis. Posterior Cerebral Arteries: Right: No aneurysm, occlusion or significant stenosis. Left: No aneurysm, occlusion or significant stenosis. Vertebral Arteries: Right: No aneurysm, occlusion or significant stenosis. Left: No aneurysm, occlusion or significant stenosis. Basilar Artery: No aneurysm, occlusion or significant stenosis. IMPRESSION: 1. Absence of the right transverse sinus. This may represent occlusion. 2. Normal MRA of the [id number]. DATA REPOSITORY:
[2024-02-02] MEDS: Gadoterate meglumine 20 ML SYRINGE IVP (08:04)
[2024-02-02] MEDS: Normal Saline Flush 10 ML SYR IVP (08:05)
== END ==
PROVIDERS: PCP Nurse Practitioner Family; Visit Provider Nurse Practitioner Adult Health
DX: D16.4 Benign neoplasm of bones of skull and face (principal); R51.9 Headache, unspecified
CPT/HCPCS: 70546

== ENCOUNTER → 2024-03-16 01:05 | Outpatient (CLI) | payer BC, SELFPAY ==
--- NOTE | 2024-03-16 | DI.RAD_ITS ---
Exam(s) XR KNEE LT 3V AP,LAT,KELLY EXAM: XR KNEE LT 3V AP,LAT,KELLY CLINICAL HISTORY: LT KNEE PAIN, M25.562. TECHNIQUE: 2D digital imaging was performed. COMPARISON: No exams were available for comparison FINDINGS: 3 views No evidence of fracture nor prominent joint effusion. No obvious degenerative changes. Benign bone island noted in the inner aspect of the medial femoral condyle. Bone density normal. There is some swelling anterior to the patella. No patellar fracture or displacement. IMPRESSION: No acute osseous findings. DATA REPOSITORY: RADIATION DOSE DELIVERED:
== END ==
PROVIDERS: PCP Nurse Practitioner Family; Visit Provider Nurse Practitioner Family
DX: M25.562 Pain in left knee (principal)
CPT/HCPCS: 73562

== ENCOUNTER 2024-08-02 20:10 | Outpatient (REF) | payer BC, SELFPAY ==
[2024-08-05 10:12] LABS: HSV 1 DNA Result Positive (Negative); HSV 2 DNA Result Negative (Negative)
== END 2024-08-02 20:11 | disposition home or self-care (01) ==
LOC: NCHCN 20:10
PROVIDERS: PCP Nurse Practitioner Family; Visit Provider Nurse Practitioner Family
DX: S00.32XA Blister (nonthermal) of nose, initial encounter (principal); X58.XXXA Exposure to other specified factors, initial encounter
CPT/HCPCS: 87529; 87070; 87205

== ENCOUNTER 2024-08-22 01:44 | Outpatient (CLI) | payer BC, SELFPAY ==
--- NOTE | 2024-08-22 | DI.MRI_ITS ---
Exam(s) MR LOWER JOINT LT WO EXAM: MR LOWER JOINT LT WO CLINICAL HISTORY: Pain in lt knee joint, M25.562,SWELLING ANT TO PATELLA,BENIGN BONE TECHNIQUE: Multiplanar multisequence MRI of the knee was performed. COMPARISON: CR XR KNEE LT 3V AP,LAT,KELLY from 03/16/2024 FINDINGS: EFFUSION: There is a small joint effusion noted. There is no Burrows cyst in the popliteal fossa. MARROW:There is no evidence of fracture, bone contusion, nor osteochondral defects.. Small benign melecio ne island is noted in the medial femoral condyle. There are no ominous osseous lesions. PATELLOFEMORAL COMPARTMENT: The quadriceps tendon is intact. The patellar ligament is intact. There is some increased signal within the fat in the superolateral aspect of Hoffa's fat pad evident. There is very mild increased signal within the retropatellar cartilage over the medial facet but with out significant cartilage thinning nor fissure nor osteochondral defect at this level.There is no int raosseous signal to suggest recent patellar dislocation. There are no patellar retinacular tears. There is no patellar offset. CRUCIATE LIGAMENTS: The anterior cruciate ligament is intact.The posterior cruciate ligament is intac t. MEDIAL COMPARTMENT/MEDIAL MENISCUS: There is a complex tear of the posterior horn of the medial menis cus. This exhibits horizontal and oblique components. The meniscal root appears intact. This exten ds towards the body but the anterior horn appears intact. There are no flipped meniscal fragments.. There are no chondral defects, osteochondral defects, subarticular marrow edema, nor osteophytes evid ent. MEDIAL COLLATERAL LIGAMENT: Intact LATERAL COMPARTMENT/LATERAL MENISCUS: There is no evidence of lateral meniscal tear.There are no vira dral defects, osteochondral defects, subarticular marrow edema, nor osteophytes evident. ILIOTIBIAL BAND: Intact LATERAL COLLATERAL LIGAMENT COMPLEX: The fibular collateral ligament is intact. The biceps femoris t endon is intact.Popliteus muscle and tendon are intact. IMPRESSION: 1. The main finding here is a complex tear of the posterior horn of the medial meniscus which exhibit s horizontal and oblique components. The meniscal root is intact and there are no flipped meniscal f ragments. There is no significant articular cartilage loss nor degenerative changes in the medial co mpartment and no subarticular bone edema nor osteochondral defects evident in the medial compartment. 2. There are no significant findings in the lateral compartment. 3. There are no cruciate nor collateral ligament tears. 4. In the patellofemoral compartment there is some mild increased signal in the superolateral aspect of the Hoffa fat pad. This may imply an element of impingement at this level. 5. Small joint effusion. No loose intra-articular bodies. There is no Burrows cyst in the popliteal fossa. DATA REPOSITORY:
== END 2024-08-22 02:04 ==
LOC: DI 01:44
PROVIDERS: PCP Nurse Practitioner Family; Visit Provider Nurse Practitioner Family
DX: M23.222 Derangement of posterior horn of medial meniscus due to old tear or injury, left knee (principal)
CPT/HCPCS: 73721

== ENCOUNTER 2024-09-29 17:53 | Outpatient (REF) | payer BC, SELFPAY | END 2024-09-29 17:54 | disposition home or self-care (01) | LOC: LBN 17:53 | PROVIDERS: PCP Nurse Practitioner Family; Visit Provider Physician Assistant Medical | DX: J02.9 Acute pharyngitis, unspecified (principal) | CPT/HCPCS: 87070 ==

== ENCOUNTER 2024-10-07 05:24 | Emergency (ER) | payer BC, SELFPAY ==
[2024-10-07 05:28] VITALS: BP 108/61; PULSE 120; RESP 16; TEMP 38.7; O2SAT 96
[2024-10-07 05:33] VITALS: BP 108/61; PULSE 120; RESP 16; TEMP 38.7; O2SAT 96
--- NOTE | 2024-10-07 05:51 | ED.GENADUL_ITS ---
Discharge Plan Disposition Patient Disposition: Home Condition: Good Discharge Details Clinical Impression: Influenza, COVID-19, Nausea & vomiting, Dehydration Primary Care Provider: Pennie Purvis ED Provider: Mickey Medina Home Meds and New Rx's Prescriptions: New oseltamivir [Tamiflu] 75 mg capsule 75 mg PO BID 5 Days Qty: 10 0RF ondansetron 4 mg tablet,disintegrating 4 mg PO Q8H Qty: 20 0RF No Action magnesium oxide 500 mg capsule 500 mg PO DAILY acetaminophen [Tylenol] 325 mg capsule 325 mg PO ONCE PRN ketoconazole 2 % shampoo 1 applic topical DAILY 21 Days Qty: 120 2RF Discharge Instructions Instructions: Dehydration, Adult ED, Flu, Adult ED Additional Instructions: At this time you have evidence of both COVID and influenza. You likely have a third virus called the norovirus. Please take the Zofran as needed for nausea. Please take the Tamiflu to help with your flu symptoms. Please take Tylenol and Motrin to help with your aches pains and fevers. Drink plenty of fluids and stay well-hydrated. If you are still persistently nauseous, you can utilize [id number] Tylenol suppositories to help with the fever. If you notice any worsening of your symptoms, or any new symptoms such as vomiting, diarrhea, fever, chills, shortness of breath, chest pain, numbness, weakness, or fainting , please return immediately to the emergency department for reevaluation. Please follow up with your primary care provider as soon as possible for reassessment and reevaluation. As always, it was a pleasure participating in your medical care today. Stand Alone Forms: Work Release Referrals: Pennie Purvis [Primary Care Provider] - [facility] General Date/Time Provider Initiated Documentation: 10/07/24 05:33 . HPI Narrative: 49-year-old female with a past medical history of osteomas of the skull, migraines, presents today for feeling unwell. 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 About 1 month ago started with fever and chills, symptoms eventually got better and then a week or so later she developed a bit of a nausea and vomiting episode, and a week or so later which brings us to the last 48 hours she felt extreme aches, chills, fever, and nausea. She has had difficulty keeping some food down. She does admit to a frontal headache, mild sore throat, and burning sensation in her chest. She admits to mild cough. No other complaints at this time. Related Data Home Medications ?Medication ?Instructions ?Recorded ?Confirmed acetaminophen 325 mg capsule 325 mg PO ONCE PRN 09/04/23 10/07/24 (Tylenol) ketoconazole 2 % shampoo 1 applic topical DAILY 21 days 09/04/23 10/07/24 #120 mL magnesium oxide 500 mg capsule 500 mg PO DAILY 07/20/24 10/07/24 ondansetron 4 mg disintegrating 4 mg PO Q8H #20 tabs 10/07/24 tablet oseltamivir 75 mg capsule (Tamiflu) 75 mg PO BID 5 days #10 caps 10/07/24 Previous Rx's ?Medication ?Instructions ?Recorded ketoconazole 2 % shampoo 1 applic topical DAILY 21 days 09/04/23 #120 mL ondansetron 4 mg disintegrating 4 mg PO Q8H #20 tabs 10/07/24 tablet oseltamivir 75 mg capsule (Tamiflu) 75 mg PO BID 5 days #10 caps 10/07/24 Allergies Allergy/AdvReac Type Severity Reaction Status Date / Time No Known Allergies Allergy Verified 10/07/24 05:27 General Stated Complaint: Fever ELIZABETH: 3 Exam Narrative Exam Narrative: 1.Const: Well-nourished, Well-developed, appearing stated age 2.Eyes: PERRL, no conjunctival injection, and symmetrical lids. 3.ENT: Atraumatic external nose and ears. Moist MM. Neck: Symmetric, trachea midline, No thyromegaly. Patient demonstrates good movement of cervical neck. There is no nuchal rigidity, no nuchal tenderness. Patient is able to flex the neck without any difficulty or significant pain. Negative Kernig's and Brudzinski sign. Tympanic membranes are patel and pearly. No erythema in the posterior oropharynx. 4.CVS: +S1/S2, Peripheral pulses 2+ and equal in all extremities. Brisk capillary refill in all extremities. 5.RESP: Unlabored respiratory effort. Clear to auscultation bilaterally. No wheezes rales or rhonchi 6.GI: Soft, Nontender/Nondistended, No hepatosplenomegaly. No guarding or rebound. 7.MSK: Normocephalic/Atraumatic, Extremities w/o deformity or ttp No cyanosis or clubbing, Normal movement of all extremities 8.Skin: Warm, Dry. No rashes or lesions. 9.Neuro: thread singer II-XII grossly intact. Sensation grossly intact, no focal neurologic deficits. 10.Psych: (AAO) x3. Appropriate mood and affect Course Vital Signs Vital signs: Vital Signs Temperature 38.7 C H 10/07/24 05:28 Pulse 120 H 10/07/24 05:28 Respiratory Rate 16 10/07/24 05:28 Blood Pressure 108/61 10/07/24 05:28 Pulse Oximetry 96 10/07/24 05:28 Temperature 38.7 C H 10/07/24 05:33 Temperature Source Temporal Artery Scan 10/07/24 05:33 Pulse 120 H 10/07/24 05:33 Respiratory Rate 16 10/07/24 05:33 Blood Pressure 108/61 10/07/24 05:33 Blood Pressure Position Sitting 10/07/24 05:28 Pulse Oximetry 96 10/07/24 05:33 Oxygen Delivery Method Room Air 10/07/24 05:33 Oxygen Flow Rate 0 10/07/24 05:28 Pain Level 6 10/07/24 05:33 Comment general body aches 10/07/24 05:33 Medical Decision Making 49-year-old female with a past medical history of osteomas of the skull, migraines, presents today for feeling unwell. 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 About 1 month ago started with fever and chills, symptoms eventually got better and then a week or so later she developed a bit of a nausea and vomiting episode, and a week or so later which brings us to the last 48 hours she felt extreme aches, chills, fever, and nausea. She has had difficulty keeping some food down. She does admit to a frontal headache, mild sore throat, and burning sensation in her chest. She admits to mild cough. No other complaints at this time. Exam demonstrates a febrile tachycardic female, no erythema in the posterior oropharynx, no nuchal rigidity or neck stiffness to suggest meningitis. No evidence of otitis media. Differential is highest for viral etiology. Xaloi-cz-snni testing was performed and unfortunately the patient is testing positive for both COVID and flu. I also suspect she may have enterovirus or norovirus. She shows no evidence to suggest myocarditis, appendicitis, or profound dehydration. We did offer IV fluids and IV Toradol and Ofirmev in conjunction with Zofran and she has consented to this. We will rehydrate, symptomatically treat her pain. Plan for outpatient Tamiflu, monitor closely and reassess. 6:33 AM After 2 L of fluids, and IV NSAIDs and Zofran she is feeling much better. Patient will be discharged home. Discussed supportive recommendations as well as reasons for return. I have extensively reviewed the treatment plan and discharge instructions with the patient. I have addressed all patient concerns at this time. The patient was made aware of what symptoms to monitor for that would warrant a return to the emergency department. Discussed the plan with the patient, they demonstrate verbal understanding and agreement with our assessment and plan at this time. The documentation in this chart was dictated using Not[employer] dictation software. Please excuse any dictation errors. Quality:SDOH Health Related Social Needs: No Data to Display PFSH All Active Problems (Updated 10/07/24 @ 06:13 by Mickey Medina DO) Dehydration (Acute) Nausea & vomiting (Acute) COVID-19 (Acute) Influenza (Acute) Osteoma of skull (Acute) Migraine headache without aura (Acute) Scalp pain (Acute) New onset of headaches (Acute) Skin rash (Acute) Constipation (Acute) Food allergy (Acute) Fatigue (Acute) Screening for colon cancer (Acute) Hematochezia (Acute) x2, with mild-mod straining, post surgery .. possible hem, div? possible aggravated post anesthesia, dehydration, poor po intake. Hx of constipation (Acute) Hx of hemorrhoids (Acute) Ureteral calculus, left (Acute) Medical History Osteoma Surgical removal at [facility] [place] Headache, rash and pain since surgery Dermatitis Joint pain Raynauds disease Lip lesion Nasal lesion Family history of breast cancer Surgical History History of colonoscopy (~04/2023) H/O dilation and curettage Family History Mother Breast cancer Grandmother Breast cancer paternal Maternal Uncle Colon cancer maternal Social History Smoking/Tobacco Use Status: Never Smoking risk assessment performed?: Yes Alcohol Intake: current Alcohol Intake frequency: holidays/special occasions only Drug use: Never Substance use type: does not use Housing: house Current gender identity: female Do you feel safe at home: Yes Do you feel safe in your relationship?: Yes Female Reproductive History Menstrual control method: permanent sterilization History History 5 Para 4 Hx # Term Pregnancies Multiple births Hx # Pregnancies Ectopic pregnancies AB induced Hx Number of Living Children AB spontaneous Past Pregnancies Del. Date GA/Weeks # Preg Succ Route Wgt Sex Labor Lgth Anesth esia Location [facility] Compl 04/06/97 No Yes vaginal 3628.739 g Male [facility] 10/03/99 No Yes vaginal 4082.331 g Male [facility] 05/16/06 No Yes vaginal 4082.331 g Male [facility] 12/17/12 No Yes vaginal 3175.147 g Female [facility]
[2024-10-07] MEDS: Ketorolac 15 MG/ML VIAL IVP (06:09)
[2024-10-07] MEDS: Ondansetron 4 MG/2 ML VIAL IVP (06:09)
[2024-10-07] MEDS: ACETAMINOPHEN 1,000 MG/100 ML BAG 400 MG IVPB (06:09)
[2024-10-07] MEDS: Normal Saline 1,000 ML 1000 ML IV (06:10)
[2024-10-07] MEDS: Lactated Ringers 1,000 ML 1000 ML IV (06:39)
[2024-10-07 07:32] VITALS: BP 98/50; PULSE 101; RESP 16; O2SAT 99
== END 2024-10-07 07:26 | disposition home or self-care (01) ==
PROVIDERS: Emergency Provider Student in an Organized Health Care Education/Training Program; PCP Nurse Practitioner Family
DX: J10.1 Influenza due to other identified influenza virus with other respiratory manifestations (principal); U07.1 COVID-19; R11.2 Nausea with vomiting, unspecified; E86.0 Dehydration
CPT/HCPCS: 96365; 96375; 99284; 99283; J0131; J1885; J2405

== ENCOUNTER 2024-11-18 00:49 | Outpatient (CLI) | payer BC, SELFPAY ==
--- NOTE | 2024-11-18 08:32 | DI.MAMMO_ITS ---
Exam(s) MAMMO SCREENING EXAM: MAMMO SCREENING CLINICAL HISTORY: screening. TECHNIQUE: Bilateral full field digital CC and MLO mammographic images were obtained with 3D tomosyn thesis and utilizing computer aided detection (CAD). COMPARISON: Prior mammograms were reviewed. FINDINGS: The fibroglandular tissue pattern is again noted be dense, this somewhat decreasing the sensitivity o f the mammogram for finding hidden underlying lesions. There are no obvious new findings in the right breast. In the left breast on the MLO view there is a suggestion of a round 2 cm nodule posteriorly in the up per outer quadrant approximately 8 cm in from the nipple. Further imaging recommended. There are no malignant-appearing microcalcification groups in this region or elsewhere in either breast. No new architectural distortion or skin thickening-retraction There is no significant architectural distortion nor skin thickening-retraction. IMPRESSION: 1. Dense bilateral fibroglandular tissue. No radiographic evidence of malignancy in the right breas t. 2. Possible 2 cm nodule in the left breast as described above. Spot compression MLO view of the lef t breast and breast ultrasound recommended. BI-RADS Category 0 - Incomplete: Need additional imaging evaluation Breast Density - Category C - Heterogeneously dense Breast density Category C or D implies that the patient has dense breast tissue. Dense breast tissue can make it harder to find cancer on a mammogram. Dense breast tissue is also associated with an incr eased risk of breast cancer. This information about the result of the mammogram report was provided to the patient to raise their awareness. Use this report when you speak with the patient about their risks for breast cancer, which includes their family history. At that time, you may recommend additional screening tests (Ultrasoun d or MRI) as these tests may add significant information. A negative radiographic report should not delay biopsy if a dominant or clinically suspicious mass is present. Up to ten percent of cancers are not identified on mammography. A negative report may reinforce clinical impression. Adenosis and dense breasts may obscure an underlying neoplasm. False positive reports average 6 to 10%. Patient will receive a letter notifying them of these results.
== END 2024-11-18 01:09 ==
LOC: DI 00:50
PROVIDERS: PCP Nurse Practitioner Family; Visit Provider Obstetrics & Gynecology
DX: Z12.31 Encounter for screening mammogram for malignant neoplasm of breast (principal); R92.333 Mammographic heterogeneous density, bilateral breasts
CPT/HCPCS: 77063; 77067

== ENCOUNTER 2024-11-24 01:09 | Outpatient (CLI) | payer BC, SELFPAY ==
--- NOTE | 2024-11-24 | DI.US_ITS ---
Exam(s) MG MAMMO SCREEN CALL BACK UNI US BREAST LT LIMITED EXAM: MG MAMMO SCREEN CALL BACK UNI and U/S breast LT limited CLINICAL HISTORY: Possible round 2 cm nodule posteriorly in UOQ 8 cm from nipple, Lt breast. TECHNIQUE: Craniocaudal and mediolateral oblique Full Field Digital Mammography views of the left br east with Computer Aided Diagnosis followed by Tomosynthesis and limited left breast ultrasound. COMPARISON: Comparison is made with prior examinations. FINDINGS: Mammography/Tomosynthesis: Masses/Architectural Distortion: The area of concern is less prominent on the additional views and ma y represent overlying fibroglandular tissue. No area of architectural distortion is seen. Microcalcifictions: No suspicious pleomorphic-type are seen. Skin Thickening/Nipple Retraction: None. Limited left breast US: The upper inner and upper outer quadrants of the left breast were evaluated s onographically. Echotexture: Normal appearance of the glandular tissue. Shadowing: No suspicious foci. Cyst: There is a 1.3 cm simple cyst at the 2 o'clock position of the left breast. Solid lesions: None seen. Ductal dilation: None. IMPRESSION: 1. No evidence of malignancy is noted. 2. Unless there is more urgent need, follow-up screening mammography is recommended, as per [employer] guidelines. 3. The findings were discussed with the patient on the date of the examination. BI-RADS Category 2 - Benign Findings Breast Density - Category C - Heterogeneously dense Breast density Category C or D implies that the patient has dense breast tissue. Dense breast tissue can make it harder to find cancer on a mammogram. Dense breast tissue is also associated with an incr eased risk of breast cancer. This information about the result of the mammogram report was provided to the patient to raise their awareness. Use this report when you speak with the patient about their risks for breast cancer, which includes their family history. At that time, you may recommend additional screening tests (Ultrasoun d or MRI) as these tests may add significant information. A negative radiographic report should not delay biopsy if a dominant or clinically suspicious mass is present. Up to ten percent of cancers are not identified on mammography. A negative report may reinforce clinical impression. Adenosis and dense breasts may obscure an underlying neoplasm. False positive reports average 6 to 10%. Patient will receive a letter notifying them of these results.
== END 2024-11-24 01:29 ==
LOC: DI 01:09
PROVIDERS: PCP Nurse Practitioner Family; Visit Provider Obstetrics & Gynecology
DX: Z12.31 Encounter for screening mammogram for malignant neoplasm of breast (principal); R92.333 Mammographic heterogeneous density, bilateral breasts; D24.2 Benign neoplasm of left breast
CPT/HCPCS: 76642; 77063; 77067

== ENCOUNTER 2024-12-13 16:10 | Outpatient (REF) | payer BC, SELFPAY ==
[2024-12-13 16:12] LABS: Calculated LDL 112 mg/dL (<100); Cholesterol 200 mg/dL (<200); HDL Cholesterol 76 mg/dL (>or=50); Triglyceride 64 mg/dL (<150)
== END 2024-12-13 16:11 | disposition home or self-care (01) ==
LOC: NCHCN 16:10
PROVIDERS: PCP Nurse Practitioner Family; Visit Provider Student in an Organized Health Care Education/Training Program
DX: Z13.220 Encounter for screening for lipoid disorders (principal)
CPT/HCPCS: 80061